=== PATIENT | female | born 1960 ===

== ENCOUNTER 2017-05-01 07:54 | Emergency (ER) | payer OTHER ==
[2017-05-01 08:00] VITALS: BP 133/84; PULSE 92; RESP 18; TEMP 97.9; O2SAT 99
--- NOTE | 2017-05-01 08:52 | C.PDOC ---
History Of Present Illness VIA TRANS CHRONIC B/L KNEE PAIN X 1 MO. PS INITIALLY R KNEE NOW B/L. PRESENT ONLY DURING WT BEAR. CURRENTLY ASYMPT WHILE SITTING. +SWELLING. +RELIEF "ONLY FOR 6 HRS" W MOTRIN 600 MG. NO PMD EVAL DUE TO LACK OF INSURANCE. NO TRAUMA, OTHER ASSOC SX EXAM NAD EXT +B/L ANT KNEE EFFUSION MOD. NO FOCAL TEND, DEFORM. AROM WO DIF SKIN WNL MDM ADVISED TO CONT CURRENT MEDS, NEED TO SEE CLINIC/ORTHO Time Seen by Provider: 05/01/17 08:18 Chief Complaint (Nursing): Lower Extremity Problem/Injury History Per: Patient History/Exam Limitations: no limitations Onset/Duration Of Symptoms: Days Current Symptoms Are (Timing): Still Present Recent travel outside of the [place]: No Past Medical History Reviewed: Historical Data, Nursing Documentation, Vital Signs Vital Signs: Last Vital Signs Temp 97.9 F 05/01/17 07:59 Pulse 92 H 05/01/17 07:59 Resp 18 05/01/17 07:59 BP 133/84 05/01/17 07:59 Pulse Ox 99 05/01/17 08:54 - Medical History PMH: No Chronic Diseases Family History: States: Unknown Family Hx - Social History Hx Alcohol Use: Yes Hx Substance Use: No - Immunization History Hx Tetanus Toxoid Vaccination: No Hx Influenza Vaccination: No Review Of Systems Musculoskeletal: Positive for: Other (BILATERAL KNEE PAIN ) Physical Exam - Physical Exam Appears: Non-toxic, No Acute Distress Skin: Normal Color, Warm, Dry, No Ecchymosis Head: Atraumatic, Normacephalic Extremity: Normal ROM, No Deformity, Other (+B/L ANT KNEE EFFUSION MOD. NO FOCAL TEND, DEFORM. AROM WO DIF) Extremity: Bilateral: Normal Color And Temperature Pulses: Left Dorsalis Pedis: Normal, Right Dorsalis Pedis: Normal Neurological/Psych: Oriented x3, Normal Speech, Normal Cognition, Normal Motor, Normal Sensation ED Course And Treatment O2 Sat by Pulse Oximetry: 99 (RA) Pulse Ox Interpretation: Normal Medical Decision Making Medical Decision Making: ADVISED TO CONT CURRENT MEDS, NEED TO SEE CLINIC/ORTHO Disposition Counseled Patient/Family Regarding: Diagnosis, Need For Followup, Rx Given - Disposition Referrals: [facility] [Outside] [facility] [Outside] Disposition: HOME/ ROUTINE Disposition Time: 08:52 Condition: GOOD Prescriptions: Ibuprofen [Motrin Tab] 800 mg PO Q8 #30 tab Instructions: Arthritis (ED) Forms: Work Excuse Print Language: FRISIAN - Clinical Impression Clinical Impression: Arthritis - Scribe Statement The provider has reviewed the documentation as recorded by the Lexiiibshanti MORENO All medical record entries made by the Lexiiibshanti were at my direction and personally dictated by me. I have reviewed the chart and agree that the record accurately reflects my personal performance of the history, physical exam, medical decision making, and the department course for this patient. I have also personally directed, reviewed, and agree with the discharge instructions and disposition.
== END 2017-05-01 08:57 | disposition home or self-care (01) ==
LOC: C.ER 07:54
DX: M13.862 Other specified arthritis, left knee (principal); M13.861 Other specified arthritis, right knee

== ENCOUNTER 2017-06-18 08:14 | Emergency (ER) | payer OTHER ==
--- NOTE | 2017-06-18 08:45 | C.PDOC ---
History Of Present Illness 56 yr old female presents to the ER with complaints of right knee pain for the past 1 year. Patient states the pain comes and goes, however the pain has worsened over the past 1 week, prompting ER visit. Patient reports the pain is to the medial side of the right knee and worse with walking. Patient denies any known trauma, back pain, leg pain, foot pain, weakness or numbness. Time Seen by Provider: 06/18/17 08:25 Chief Complaint (Nursing): Lower Extremity Problem/Injury History Per: Patient History/Exam Limitations: no limitations Onset/Duration Of Symptoms: Persistent (1 year ) Current Symptoms Are (Timing): Still Present Recent travel outside of the [place]: No Past Medical History Reviewed: Historical Data, Nursing Documentation, Vital Signs Vital Signs: Last Vital Signs Temp 97.8 F 06/18/17 09:33 Pulse 74 06/18/17 09:33 Resp 16 06/18/17 09:33 BP 109/74 06/18/17 09:33 Pulse Ox 96 06/18/17 10:46 Family History: States: No Known Family Hx - Social History Hx Alcohol Use: Yes Hx Substance Use: No - Immunization History Hx Tetanus Toxoid Vaccination: No Hx Influenza Vaccination: No Review Of Systems Except As Marked, All Systems Reviewed And Found Negative. Genitourinary: Negative for: Other Musculoskeletal: Positive for: Other ((+) Right knee pain.). Negative for: Back Pain, Leg Pain Neurological: Negative for: Weakness, Numbness Physical Exam - Physical Exam Appears: Non-toxic, No Acute Distress Skin: Warm, Dry, No Rash Head: Atraumatic, Normacephalic Chest: Symmetrical, No Tenderness Cardiovascular: Rhythm Regular, No Murmur Respiratory: Normal Breath Sounds, No Rales, No Rhonchi, No Wheezing Extremity: Normal ROM, No Tenderness, No Calf Tenderness, No Swelling, Other ( Right Knee - No erythema.) Pulses: Left Dorsalis Pedis: Normal, Right Dorsalis Pedis: Normal Neurological/Psych: Oriented x3, Normal Speech, Normal Motor, Normal Sensation Gait: Unsteady (Slight limp.) ED Course And Treatment O2 Sat by Pulse Oximetry: 96 (RA) Pulse Ox Interpretation: Normal - Other Rad X-Ray - Right Knee X-Ray: Viewed By Me, Read By Radiologist Interpretation: PROCEDURE: Right Knee Radiographs. HISTORY: knee pain. COMPARISON: None. FINDINGS: BONES: No fracture or dislocation. Trace tibial spine spurring. JOINTS: Although not weight-bearing medial femoral tibial joint space narrowing is inferred. JOINT EFFUSION: The soft tissues are focally prominent anterior and slightly superior to the patellar bone a high prepatellar bursitis is 1 consideration. . Prominent focal adipose deposit is another. The fullness is slightly higher than typically seen for prepatellar bursitis. Retropatellar joint effusion suggested. OTHER FINDINGS: Quadriceps insertional enthesophyte present. There is calcification/ossification localizing anterior to the medial knee joint line. Although this projects over the patellar tendon on the lateral view it projects the far peripheral medial femoral tibial joint space on frontal images. Its etiology is uncertain. Matthews with any prior trauma or prior surgical intervention is recommended. It is not a typical position for a loose body. A posttraumatic granuloma 1 consideration. IMPRESSION: No fracture. Medial femoral tibial degenerative joint space narrowing. Other findings as above Medical Decision Making Medical Decision Making: PLAN: * X-Ray - Right Knee Disposition - Disposition Disposition: HOME/ ROUTINE Disposition Time: 09:22 Condition: FAIR Additional Instructions: Motrin for pain. Follow-up with PMD within 2 days. Return to ED if condition worsens. Prescriptions: Ibuprofen [Motrin] 600 mg PO Q6 #30 tab Instructions: Osteoarthritis (ED), Degenerative Disc Disease (ED), Arthritis ( ED) Forms: Gen Discharge Inst Estonian, [facility] (Estonian) Print Language: [place]ER[place] LEONEAN - Clinical Impression Clinical Impression: Knee pain - Scribe Statement The provider has reviewed the documentation as recorded by the Christiano Girard Provider Attestation: All medical record entries made by the Christiano were at my direction and personally dictated by me. I have reviewed the chart and agree that the record accurately reflects my personal performance of the history, physical exam, medical decision making, and the department course for this patient. I have also personally directed, reviewed, and agree with the discharge instructions and disposition.
[2017-06-18 09:34] VITALS: BP 109/74; PULSE 74; RESP 16; TEMP 97.8
--- NOTE | 2017-06-18 10:43 | RAD ---
PROCEDURE: Right Knee Radiographs. HISTORY: knee pain COMPARISON: None. FINDINGS: BONES: No fracture or dislocation. Trace tibial spine spurring JOINTS: Although not weight-bearing medial femoral tibial joint space narrowing is inferred JOINT EFFUSION: The soft tissues are focally prominent anterior and slightly superior to the patellar bone a high prepatellar bursitis is 1 consideration. . Prominent focal adipose deposit is another. The fullness is slightly higher than typically seen for prepatellar bursitis. Retropatellar joint effusion suggested. OTHER FINDINGS: Quadriceps insertional enthesophyte present. There is calcification/ossification localizing anterior to the medial knee joint line. Although this projects over the patellar tendon on the lateral view it projects the far peripheral medial femoral tibial joint space on frontal images. Its etiology is uncertain. Matthews with any prior trauma or prior surgical intervention is recommended. It is not a typical position for a loose body. A posttraumatic granuloma 1 consideration IMPRESSION: No fracture. Medial femoral tibial degenerative joint space narrowing. Other findings as above
[2017-06-18 10:47] VITALS: O2SAT 96
== END 2017-06-18 09:34 | disposition home or self-care (01) ==
LOC: C.ER 08:14
DX: M25.561 Pain in right knee (principal)
CPT/HCPCS: 73562; 96372; 99284; J1885

== ENCOUNTER 2017-07-02 12:10 | Emergency (ER) | payer OTHER ==
[2017-07-02 12:23] VITALS: RESP 18; TEMP 98.8
--- NOTE | 2017-07-02 13:00 | C.PDOC ---
History Of Present Illness 56 year old female presents to the ER with complaints of persistent right knee pain for the past 4 months. Patient states she has been to the ER in the past for same complaints and was given pain medication. States she finished all her ibuprofen and was unable to get an appointment for another month at the clinic, and is here requesting pain medication. Patient denies new injury, leg pain, foot pain, back pain, weakness or numbness. Time Seen by Provider: 07/02/17 12:27 Chief Complaint (Nursing): Lower Extremity Problem/Injury History Per: Patient History/Exam Limitations: no limitations Onset/Duration Of Symptoms: Persistent (4 months) Current Symptoms Are (Timing): Still Present Past Medical History Reviewed: Historical Data, Nursing Documentation, Vital Signs Vital Signs: Last Vital Signs Temp 98.8 F 07/02/17 12:21 Pulse 85 07/02/17 13:35 Resp 18 07/02/17 13:35 BP 124/75 07/02/17 13:35 Pulse Ox 98 07/02/17 13:35 - Medical History PMH: Arthritis Surgical History: No Surg Hx Family History: States: No Known Family Hx - Social History Hx Alcohol Use: Yes Hx Substance Use: No - Immunization History Hx Tetanus Toxoid Vaccination: No Hx Influenza Vaccination: No Hx Pneumococcal Vaccination: No Review Of Systems Except As Marked, All Systems Reviewed And Found Negative. Musculoskeletal: Positive for: Other (Right knee pain.). Negative for: Leg Pain , Foot Pain Neurological: Negative for: Weakness, Numbness Physical Exam - Physical Exam Appears: Non-toxic, No Acute Distress Skin: Warm, Dry, No Rash, No Ecchymosis Head: Atraumatic, Normacephalic Eye(s): bilateral: Normal Inspection Neck: Normal ROM Chest: Symmetrical Cardiovascular: Rhythm Regular, No Murmur Respiratory: Normal Breath Sounds, No Wheezing Extremity: Tenderness (Tender to the anterior right knee. ), No Calf Tenderness , No Deformity, No Swelling, Other ((+) Painful flexion of the knee. ) Pulses: Left Dorsalis Pedis: Normal, Right Dorsalis Pedis: Normal Neurological/Psych: Oriented x3, Normal Speech, Normal Motor, Normal Sensation Gait: Steady ED Course And Treatment O2 Sat by Pulse Oximetry: 100 (RA) Pulse Ox Interpretation: Normal Medical Decision Making Medical Decision Making: Impression: chronic knee pain Prior records reviewed patient was seen in ED 06/18/17 for same knee problem. Treated with Toradol and xray showed No fracture. Medial femoral tibial degenerative joint space narrowing. Rx for ibuprofen given. Plan: Toradol IM Progress and dispo: Patient has her own knee brace on. Patient reports mild improvement of pain. I explain to patient she needs to follow up in our clinic for further care of chronic knee pain and may need ortho consult, MRI and further eval. She verbalized understanding. Disposition Counseled Patient/Family Regarding: Diagnosis, Need For Followup, Rx Given - Disposition Referrals: [facility] [Outside] Disposition: HOME/ ROUTINE Disposition Time: 12:58 Condition: STABLE Additional Instructions: Por favor, siga en la clnica para ms atencin y consulta ortopdica y fisioterapia [place] la medicina si es necesario zamzam pepcid para cualquier malestar estomacal Prescriptions: Famotidine [Pepcid] 40 mg PO DAILY #20 tab Naproxen [Naprosyn] 1 tab PO BID PRN #25 tab PRN Reason: Pain Instructions: Knee Pain (ED) Forms: [employer] (Tristanian) Print Language: PORTUGUESE - POA Present On Arrival: None - Clinical Impression Clinical Impression: Chronic knee pain - 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 - Scribe Statement The provider has reviewed the documentation as recorded by the Scribe Vivi Girard All medical record entries made by the Scribe were at my direction and personally dictated by me. I have reviewed the chart and agree that the record accurately reflects my personal performance of the history, physical exam, medical decision making, and the department course for this patient. I have also personally directed, reviewed, and agree with the discharge instructions and disposition.
[2017-07-02 13:36] VITALS: BP 124/75; PULSE 85
[2017-07-02 20:51] VITALS: O2SAT 100
== END 2017-07-02 13:36 | disposition home or self-care (01) ==
LOC: C.ER 12:10
DX: G89.29 Other chronic pain (principal); M25.561 Pain in right knee
CPT/HCPCS: 96372; 99283; J1885

== ENCOUNTER 2017-09-07 08:26 | Day surgery (SDC) | payer OTHER ==
[2017-09-07 09:27] VITALS: BMI 29.2
[2017-09-07] MEDS ORDERED: Lactated Ringer's 1,000 ML IV ONE (12:30)
[2017-09-07] MEDS ORDERED: Propofol 10 mg/ml Inj (20 ML) ONE ×2 (12:35→12:41)
[2017-09-07] MEDS ORDERED: Lidocaine Hydrochloride 5 ML INJ ONE (12:35)
[2017-09-07 13:56] VITALS: TEMP 97.3
[2017-09-07 14:02] VITALS: RESP 13
[2017-09-07 14:21] VITALS: BP 114/60; PULSE 84; O2SAT 98
== END 2017-09-07 14:15 | disposition home or self-care (01) ==
LOC: C.ENDO 08:26
PROVIDERS: ATTEND Internal Medicine
DX: Z12.11 Encounter for screening for malignant neoplasm of colon (principal); D12.5 Benign neoplasm of sigmoid colon; K64.8 Other hemorrhoids
CPT/HCPCS: 45380; 88305; J2704; J7120